=== PATIENT | male | born 1970 | race Two or more races ===

== ENCOUNTER 2018-01-18 19:54 | Emergency (ER) | payer MEDICAID ==
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
--- NOTE | 2018-01-19 07:48 | Diagnostic Imaging Report ---
Cervical spine (4 views) HISTORY: Pain, trauma There are is reversal of the cervical lordosis that may be associated with spasm. Alignment is normal. No focal lesions. No fractures. Prevertebral soft tissues appear normal. IMPRESSION: 1. No acute focal bony abnormalities
--- NOTE | 2018-01-19 07:49 | Diagnostic Imaging Report ---
Chest x-ray (2 views) HISTORY: Pain, trauma The overall heart size is difficult to assess due to poor inspiration. No focal pulmonary processes. No hilar or mediastinal abnormalities. Mild degenerative changes seen within the thoracic spine. IMPRESSION: No acute abnormalities
== END 2018-01-18 21:38 | disposition home or self-care (01) ==
LOC: ER 19:54
DX: S16.1XXA Strain of muscle, fascia and tendon at neck level, initial encounter (principal); S39.012A Strain of muscle, fascia and tendon of lower back, initial encounter; S20.219A Contusion of unspecified front wall of thorax, initial encounter; R42 Dizziness and giddiness; V49.9XXA Car occupant (driver) (passenger) injured in unspecified traffic accident, initial encounter; Y93.89 Activity, other specified; Y92.410 Unspecified street and highway as the place of occurrence of the external cause; Y99.8 Other external cause status
CPT/HCPCS: 99284; 96372; 71046; 72040; J1885; Z7502

== ENCOUNTER 2018-12-13 22:55 | Emergency (ER) | payer MEDICAID ==
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
== END 2018-12-14 01:28 | disposition home or self-care (01) ==
LOC: ER 22:55
DX: S83.91XA Sprain of unspecified site of right knee, initial encounter (principal); S23.3XXA Sprain of ligaments of thoracic spine, initial encounter; S33.5XXA Sprain of ligaments of lumbar spine, initial encounter; S40.011A Contusion of right shoulder, initial encounter; S60.211A Contusion of right wrist, initial encounter; S90.31XA Contusion of right foot, initial encounter; V43.52XA Car driver injured in collision with other type car in traffic accident, initial encounter; Y93.89 Activity, other specified; Y92.410 Unspecified street and highway as the place of occurrence of the external cause; Y99.8 Other external cause status
CPT/HCPCS: 72080-TC; 73560-TC-RT; 73700-TC-RT